=== PATIENT | female | born 1950 | race Caucasian/White ===

== ENCOUNTER → 2019-02-02 | Outpatient (CLI) | payer BC, MEDICARE | END | disposition home or self-care (01) | LOC: RAH 09:28 | PROVIDERS: ATTEND Internal Medicine | DX: K59.00 Constipation, unspecified (principal) | CPT/HCPCS: 74018 ==

== ENCOUNTER → 2019-02-14 | Outpatient (CLI) | payer BC, MEDICARE | END | disposition home or self-care (01) | LOC: RAH 07:58 | PROVIDERS: ATTEND Internal Medicine | DX: K80.20 Calculus of gallbladder without cholecystitis without obstruction (principal) | CPT/HCPCS: 76700 ==

== ENCOUNTER → 2024-10-23 | Outpatient (CLI) | payer OTHER ==
--- NOTE | 2024-10-27 09:22 | HMCSR ---
APPROVED REPORT EXAM: Two-dimensional and M-mode echocardiogram with Doppler and color Doppler. INDICATION ICD: R55 Syncope and collapse 2D Dimensions RVDd3.5 cmLVEF(%)52.9 (>50%)LVED Vol(simp.)72.0 mL IVSd1.2 (0.7-1.1cm)FS(%)27 %LVES Vol(simp.)28.0 mL LVDd3.6 (3.8-5.6cm)Ao Root(2D)3.3 (2.0-3.7cm)LVEF(%, simp.)60 % PWd1.2 (0.7-1.1cm)LVOT diam1.8 (1.8-2.4cm)LA ESV INDEX (BP)24.98 mL/m2 LVDs2.6 (2.5-4.0cm) Aortic Valve AoV Vmax1.2 m/Jarod Peak GR6.1 mmHgLVOT Vmax1.0 m/s AoV VTI0.3 mAo Mean GR3.3 mmHgLVOT VTI0.22 m KARYN (VMAX)2.3 cm2AVA (VTI) 2.3 cm2 Mitral Valve MV E Vmax60.8 cm/sDECEL Krgw573 ms MV A Vmax71.3 cm/sP 1/2 T62 ms E/A ratio0.9MVA (PHT)3.5 cm2 TDI E/E' Medial8.6E/E' Lateral7.7 Pulmonary Valve PV Vmax0.7 m/sPV VTI0.20 mPV Mean GR1 mmHg PV Peak GR2.2 mmHg Tricuspid Valve TR Vmax2.2 m/sRAP (EST) 3 snPuJXDV54.2 mmHg TR Peak GR19.2 mmHg Left Ventricle Left ventricular cavity size is normal. There is normal LV segmental wall motion. There is mild lorenzo ntric left ventricular hypertrophy. LVEF is 55-60%. Left ventricular filling pattern is normal for ag e. Right Ventricle The right ventricle is normal size. The right ventricular systolic function is normal. Atria The left atrium size is normal. The right atrium size is normal. Aortic Valve Aortic valve is trileaflet. Aortic valve leaflets are sclerotic but open well. Trace aortic regurgita tion. There is no aortic valvular stenosis. Mitral Valve Mitral valve leaflets are mildly sclerotic but open well. Mitral regurgitation is trace. There is no mitral valve stenosis. Tricuspid Valve The tricuspid valve leaflets appear normal. There is trace tricuspid regurgitation. Pulmonic Valve Pulmonic valve is not well visualized. There is trace pulmonic valvular regurgitation. Great Vessels The aortic root is normal in size. The IVC is normal in size and collapses >50% with inspiration. Pericardium No pericardial effusion. Other Information Quality : Technically Limited Technically limited study due to body habitus. Conclusion Left ventricular cavity size is normal. LVEF is 55-60% with normal LV segmental wall motion. There is mild concentric left ventricular hypertrophy. Left ventricular filling pattern is normal for age. The right ventricular systolic function is normal. Both atria are normal in size. No hemodynamically significant valvular abnormalities. No pericardial effusion.
== END | disposition home or self-care (01) ==
LOC: SHCH 15:52
PROVIDERS: ATTEND Student in an Organized Health Care Education/Training Program
DX: I08.0 Rheumatic disorders of both mitral and aortic valves (principal); R55 Syncope and collapse
CPT/HCPCS: 93306

== ENCOUNTER → 2025-05-25 | Outpatient (CLI) | payer OTHER ==
--- NOTE | 2025-05-26 10:32 | HMCIMG ---
US RENAL SONOGRAM Indication: Mixed incontinence Technique: Renal ultrasound was performed by a grommet machine operator and reviewed by a radiologist. Findings: Right Kidney: 9.2 x 5.0 x 4.3 cm. Unremarkable sonographic appearance without focal lesions or hydronephrosis. Left Kidney: 10.0 x 5.3 x 4.7 cm. Unremarkable sonographic appearance without focal lesions or hydronephrosis. There is mild pelviectasis Urinary bladder: Unremarkable. The prevoid volume is 232 cc and postvoid residual is 37 cc. The urinary bladder wall thickness is 0.2 cm. Impression: Normal renal ultrasound.
== END | disposition home or self-care (01) ==
LOC: RAH 12:36
PROVIDERS: ATTEND Urology
DX: N73.8 Other specified female pelvic inflammatory diseases (principal); N39.46 Mixed incontinence
CPT/HCPCS: 76770